=== PATIENT | female | born 1975 | race Caucasian/White ===

== ENCOUNTER 2018-08-09 08:45 | Emergency (ER) | payer MEDICAID ==
[~2018-08-09] VITALS: Ht 152.4 cm; Wt 78.0 kg
[~2018-08-09 08:45] MED LIST: OTC MED
[2018-08-09] MEDS ORDERED: NITROGLYCERIN OINT 1GM/INCH UDPKT TD ONE (12:00)
[2018-08-09] MEDS ORDERED: ASPIRIN 81MG TABLET PO ONE (12:00)
[2018-08-09 13:10] LABS: BASOPHILS % 0.3 % (0.0-2.0); EOSINOPHILS % 1.4 % (0.0-5.0); HEMOGLOBIN. 13.3 g/dL (12.0-16.0); MEAN CORPUSCULAR HEMOGLOBIN 29.1 pg (28.0-32.0); MEAN CORPUSCULAR VOLUME 85.6 fL (81.0-99.0); MEAN PLATELET VOLUME 7.7 fl (7.4-10.4); MONOCYTES % 6.9 % (2.0-8.0); NEUTROPHILS % 61.4 % (40.0-76.0); PLATELET 345 x1000/uL (130-400); RED BLOOD CELL COUNT 4.56 mill/uL (4.2-5.4); RED CELL DISTRIBUTION WIDTH 13.5 % (11.6-14.6)
[2018-08-09 13:16] LABS: CHLORIDE 106 mEq/L (98-107)
[2018-08-09 13:21] LABS: D-DIMER 0.25 mg/L FEU (<0.50); INR 0.9; PROTHROMBIN TIME 9.3 sec (9.1-11.1)
[2018-08-09 13:24] LABS: HCG SCREEN NEGATIVE
[2018-08-09 15:52] VITALS: BP 120/69
== END 2018-08-09 15:54 | disposition home or self-care (01) ==
LOC: ER 08:45
DX: R07.89 Other chest pain (principal); F41.1 Generalized anxiety disorder; R53.1 Weakness
CPT/HCPCS: 36415; 71045; 81025; 83880; 84484; 84703; 85379; 93005; 99284

== ENCOUNTER 2018-09-09 14:31 | Emergency (ER) | payer MEDICAID ==
[~2018-09-09] VITALS: Ht 154.9 cm; Wt 77.0 kg
[2018-09-09] MEDS ORDERED: CEFTRIAXONE SODIUM 250 MG/VIAL IM ONE (22:30)
[2018-09-09] MEDS ORDERED: AZITHROMYCIN 500 MG TABLET PO ONE (22:30)
[2018-09-09 23:07] LABS: CLARITY URINE CLEAR (CLEAR); COLOR URINE YELLOW (YELLOW); KETONES URINE TRACE (NEGATIVE); LEUKOCYTE ESTERASE URINE NEGATIVE (NEGATIVE); NITRITE URINE NEGATIVE (NEGATIVE); OCCULT BLOOD URINE 1+ (NEGATIVE); PROTEIN URINE NEGATIVE (NEGATIVE); SPECIFIC GRAVITY URINE 1.025 (1.005-1.030); UROBILINOGEN URINE 0.2 E.U./dL (0.2-1.0)
[2018-09-09 23:30] VITALS: BP 138/82
[2018-09-12 04:13] LABS: CHLAMYDIA TRACHOMATIS NAA Negative (Negative); NEISSERIA GONORRHOEAE NAA Negative (Negative)
== END 2018-09-10 | disposition home or self-care (01) ==
LOC: ER 14:31
DX: A64 Unspecified sexually transmitted disease (principal); R03.0 Elevated blood-pressure reading, without diagnosis of hypertension
CPT/HCPCS: 81003; 87210; 87491; 87591; 96372; 99283; J0696

== ENCOUNTER 2018-09-22 14:10 | Emergency (ER) | payer MEDICAID ==
[~2018-09-22] VITALS: Ht 154.9 cm; Wt 73.0 kg
[2018-09-22] MEDS ORDERED: ACETAMINOPHEN WITH CODEINE 300/30MG TABLET PO ONE (15:15)
[2018-09-22 17:47] VITALS: BP 125/74
== END 2018-09-22 17:48 | disposition home or self-care (01) ==
LOC: ER 14:10
DX: K64.4 Residual hemorrhoidal skin tags (principal)
CPT/HCPCS: 81025; 87210; 99283

== ENCOUNTER 2021-03-27 13:25 | Emergency (ER) | payer MEDICAID ==
[~2021-03-27] VITALS: Ht 154.9 cm; Wt 83.0 kg
[2021-03-27] MEDS ORDERED: ACETAMINOPHEN 325MG TABLET PO ONE (14:00)
[2021-03-27] MEDS ORDERED: TETANUS, DIPHTHERIA, PERTUSSIS VAC/PF 0.5ML (>7YR OLD) IM ONE (14:00)
[2021-03-27] MEDS ORDERED: AMOX-424 MT (14:11)
[2021-03-27] MEDS ORDERED: RABIES VAC,PF CHICK-EMB CELL 2.5 UNITS/ML IM ONE (14:30)
[2021-03-27 15:50] VITALS: BP 128/70
== END 2021-03-27 15:50 | disposition left against medical advice (07) ==
LOC: ER 13:25
DX: S81.852A Open bite, left lower leg, initial encounter (principal); Z23 Encounter for immunization; Z79.899 Other long term (current) drug therapy; W54.0XXA Bitten by dog, initial encounter; Y93.01 Activity, walking, marching and hiking; Y92.480 Sidewalk as the place of occurrence of the external cause; Y99.8 Other external cause status
CPT/HCPCS: 90471; 90675; 90715; 99283

== ENCOUNTER 2021-09-20 21:21 | Emergency (ER) | payer MEDICAID ==
[~2021-09-20] VITALS: Ht 157.5 cm; Wt 84.6 kg
[~2021-09-20 21:21] MED LIST changes: +AMOX-424 MT
[2021-09-20 21:31] VITALS: BP 136/82
[2021-09-20] MEDS ORDERED: IBUP-2029 MT (22:55)
[2021-09-20] MEDS ORDERED: METOCLOPRAMIDE HCL 5MG TABLET PO ONE (23:00)
[2021-09-20] MEDS ORDERED: KETOROLAC 30MG/ML VIAL IM ONE (23:00)
== END 2021-09-21 00:51 | disposition home or self-care (01) ==
LOC: ER 21:21
DX: R51.9 Headache, unspecified (principal)
CPT/HCPCS: 81025; 96372; 99283; J1885; J8597

== ENCOUNTER 2024-07-11 12:17 | Emergency (ER) | payer MEDICAID ==
[~2024-07-11] VITALS: Ht 154.9 cm; Wt 87.0 kg
[~2024-07-11 12:17] MED LIST changes: +IBUP-2029 MT
[2024-07-11 12:23] VITALS: O2SAT 99
[2024-07-11] MEDS: SODIUM CHLORIDE 0.9% 1,000 ML IV ONE (13:30)
[2024-07-11] MEDS: ACETAMINOPHEN 325MG TABLET PO STA (13:30)
[2024-07-11 13:42] LABS: BASOPHILS % 0.6 % (0.0-2.0); EOSINOPHILS % 2.3 % (0.0-5.0); HEMOGLOBIN. 12.3 g/dL (12.0-16.0); LYMPHOCYTES % 38.8 % (20.0-50.0); MEAN CORPUSCULAR HEMOGLOBIN 28.8 pg (28.0-32.0); MEAN CORPUSCULAR HGB CONC 33.2 g/dL (31.0-37.0); MEAN CORPUSCULAR VOLUME 86.9 fL (81.0-99.0); MEAN PLATELET VOLUME 8.1 fl (7.4-10.4); MONOCYTES % 6.1 % (2.0-8.0); NEUTROPHILS % 52.2 % (40.0-76.0); PLATELET 348 x1000/uL (130-400); RED BLOOD CELL COUNT 4.26 mill/uL (4.2-5.4); RED CELL DISTRIBUTION WIDTH 13.4 % (11.6-14.6); WHITE BLOOD COUNT 7.8 x1000/uL (4.5-11.0)
[2024-07-11 13:55] LABS: CARBON DIOXIDE 25 mEq/L (21-32); CHLORIDE 108 mEq/L (98-107); POTASSIUM 3.7 mEq/L (3.5-5.1); SODIUM 140 mEq/L (136-145)
[2024-07-11 13:56] LABS: CALCIUM 9.5 mg/dL (8.7-10.4)
[2024-07-11] MEDS: METOCLOPRAMIDE HCL 10MG/2ML VIAL IV ONE (14:00)
[2024-07-11 14:01] LABS: CREATININE 0.8 mg/dL (0.6-1.0); GLUCOSE 144 mg/dL (70-105); UREA NITROGEN BLOOD 10 mg/dL (9-23)
[2024-07-11] MEDS ORDERED: NAPR-681 MT (16:00)
[2024-07-11 16:07] VITALS: BP 117/62; PULSE 67; RESP 18; TEMP 36.66960; O2SAT 99
== END 2024-07-11 16:11 | disposition home or self-care (01) ==
LOC: ER 12:43
DX: R51.9 Headache, unspecified (principal); H57.10 Ocular pain, unspecified eye; Z98.890 Other specified postprocedural states
CPT/HCPCS: 80048; 85025; 36415; 70450; 96361; 96374; 99285; J2765; J7030; Z7610

== ENCOUNTER 2024-09-26 15:04 | Emergency (ER) | payer MEDICAID ==
[~2024-09-26] VITALS: Ht 160 cm; Wt 83.0 kg
[~2024-09-26 15:04] MED LIST changes: +NAPR-681 MT
[2024-09-26 15:14] VITALS: O2SAT 100
[2024-09-26 16:27] LABS: CHLORIDE 103 mEq/L (98-107); POTASSIUM 4.2 mEq/L (3.5-5.1); SODIUM 138 mEq/L (136-145)
[2024-09-26 16:28] LABS: CARBON DIOXIDE 27 mEq/L (21-32)
[2024-09-26 16:29] LABS: CALCIUM 9.7 mg/dL (8.7-10.4)
[2024-09-26 16:32] LABS: BASOPHILS % 0.1 % (0.0-2.0); EOSINOPHILS % 1.9 % (0.0-5.0); HEMOGLOBIN. 12.4 g/dL (12.0-16.0); LYMPHOCYTES % 34.6 % (20.0-50.0); MEAN CORPUSCULAR HEMOGLOBIN 29.7 pg (28.0-32.0); MEAN CORPUSCULAR HGB CONC 34.3 g/dL (31.0-37.0); MEAN CORPUSCULAR VOLUME 86.5 fL (81.0-99.0); MEAN PLATELET VOLUME 8.3 fl (7.4-10.4); MONOCYTES % 6.2 % (2.0-8.0); NEUTROPHILS % 57.2 % (40.0-76.0); PLATELET 315 x1000/uL (130-400); RED BLOOD CELL COUNT 4.16 mill/uL (4.2-5.4); RED CELL DISTRIBUTION WIDTH 13.2 % (11.6-14.6); WHITE BLOOD COUNT 9.9 x1000/uL (4.5-11.0)
[2024-09-26 16:33] LABS: CREATININE 0.7 mg/dL (0.6-1.0); GLUCOSE 108 mg/dL (70-105); UREA NITROGEN BLOOD 12 mg/dL (9-23)
[2024-09-26 16:39] LABS: HCG SCREEN NEGATIVE
[2024-09-26 19:08] LABS: INR 0.9; PROTHROMBIN TIME 9.8 sec (9.6-11.0)
[2024-09-26] MEDS: ACETAMINOPHEN 1000MG/100ML 100 ML IV ONE (20:16)
[2024-09-26] MEDS: SODIUM CHLORIDE 0.9% 1,000 ML IV ONE (20:28)
[2024-09-26] MEDS: IOHEXOL-350 100 ML BOTTLE ONE (21:10)
[2024-09-26 22:50] VITALS: BP 136/73; PULSE 63; RESP 16; TEMP 36.94740; O2SAT 100
== END 2024-09-26 23:54 | disposition left against medical advice (07) ==
LOC: ER 15:04 → EDBEDREQSVC 21:26 → EDBEDREQ 21:26 → EDBEDREQTM 21:26 → ER 23:54
DX: R51.9 Headache, unspecified (principal); R26.2 Difficulty in walking, not elsewhere classified; Z79.1 Long term (current) use of non-steroidal anti-inflammatories (NSAID)
CPT/HCPCS: 99291; 70496; 96365; 71045; 80048; 84703; 85025; 85610; 36415; 70498; 70450; 93005; Q9967; J7030; J0131